=== PATIENT | male | born 1940 | race Caucasian/White ===

== ENCOUNTER 2019-08-08 06:26 | Day surgery (SDC) | payer MEDICARE, OTHER ==
[~2019-08-08 06:26] MED LIST: Acetaminophen TAB* 325 MG PO PRN
[2019-08-08] MEDS ORDERED: Famotidine IV* 10 MG/ML 2 ML (20 mg) ONE (06:33)
[2019-08-08] MEDS ORDERED: fentaNYL* 50 MCG/ML 2 ML VIAL (100 MCG VIAL) ONE (07:15)
[2019-08-08] MEDS ORDERED: Midazolam* 1 MG/ML 5 ML VIAL (5 MG) ONE (07:15)
[2019-08-08 08:52] VITALS: BP 127/53
--- NOTE | 2019-08-08 09:10 | OP ---
DATE OF OPERATION: 08/08/19 [facility] DATE OF : 44 SURGEON: Marco Jose MD. ANESTHESIA: Monitored anesthesia care. PREOPERATIVE DIAGNOSIS: Cataract, left eye. POSTOPERATIVE DIAGNOSIS: Cataract, left eye. OPERATIVE PROCEDURE: Extracapsular cataract extraction of the left eye with intraocular lens implant. IMPLANT: SN60WF 16.0 diopter lens to the left eye. COMPLICATIONS: None. DESCRIPTION OF PROCEDURE: The patient was given phenylephrine 2.5 % and cyclopentolate 1% eye drops to the operative eye in the preoperative area. The patient was taken to the operating room where a time-out was taken to identify the correct patient, site, and side of surgery. The patient's left eye was prepped and draped in the usual sterile fashion with 5% Betadine. A second time -out was taken to verify the correct patient, side, and site of surgery and correct lens implant. A lid speculum was placed to the left eye. A 1-mm paracentesis blade was used to make a clear corneal incision in the inferotemporal position. Preservative-free 1% lidocaine was injected into the anterior chamber. DisCoVisc was then injected into the anterior chamber. A 2.75 -mm keratome blade was used to make a triplanar incision at the superotemporal position. A cystotome initiated a capsulorrhexis, which was completed with Utrata forceps in a continuous and curvilinear manner. Hydrodissection of the lens was performed with BSS on a cannula. The lens could be spun in the capsular bag. The phacoemulsification handpiece was used with a divide- and- conquer technique to remove the nucleus. The I/A handpiece then removed the residual cortical lens material. Provisc was injected to inflate the capsular bag. The ORA system was then used to confirm lens power. The selected SN60WF 16.0 diopter lens was injected into the capsular bag. The residual DisCoVisc was removed from the eye with the I/A handpiece. The corneal incisions were hydrated and no leaks occurred at physiologic pressure around 20 mmHg per palpation. The lid speculum was removed and drapes were removed. Maxitrol ointment was placed to the surface of the operative eye. An adhesive patch and shield were then placed on the operative eye. The patient was taken to the postoperative area in stable condition. [id number] #: [id number] MTDD
[2019-08-08] MEDS ORDERED: Tetracaine 0.5% OPTH.SOL 4 ML* 1 DROP BTL ONE (11:12)
[2019-08-08] MEDS ORDERED: Ketorolac 0.5% OPHTH (NF) 0.5 % 5 ML BTL ONE (11:12)
[2019-08-08] MEDS ORDERED: Phenylephrine OPHTH SOL 2.5%* 2 ML ONE (11:12)
[2019-08-08] MEDS ORDERED: Povidone Iodine 5% OPTH* 30 ML BTL ONE (11:12)
[2019-08-08] MEDS ORDERED: Cyclopentolate 1% OPTH.SOL* 2 ML BTL ONE (11:12)
[2019-08-08] MEDS ORDERED: acetaZOLAMIDE TAB* 250 MG ONE (11:12)
[2019-08-08] MEDS ORDERED: Lidocaine 1% MPF ** 5 ML VIAL ONE (11:12)
[2019-08-08] MEDS ORDERED: Neomycin/Polymy/Dex OPHTH.OIN* 3.5 GM ONE (11:12)
[2019-08-08] MEDS ORDERED: Tropicamide 1% OPTH.SOL* BTL ONE (11:12)
== END 2019-08-08 08:44 | disposition home or self-care (01) ==
LOC: OREAST 06:26
PROVIDERS: ATTEND Student in an Organized Health Care Education/Training Program
DX: H25.812 Combined forms of age-related cataract, left eye (principal); E11.8 Type 2 diabetes mellitus with unspecified complications
CPT/HCPCS: A9270-GY; J2250; J3010; V2632